=== PATIENT | female | born 1975 | race American Indian/Alaskan Native ===

== ENCOUNTER 2019-07-20 15:56 | Emergency (ER) | payer SELFPAY ==
[2019-07-20 16:01] VITALS: BP 150/96
--- NOTE | 2019-07-20 16:09 | Event Note ---
ED Screening Note ED Screening Note: lue pain with clear line of demarcation. she has at least 2 red spots on back ? etio given her LUE symptoms and chills I will do lab work lmp 06/28 This initial assessment/diagnostic orders/clinical plan/treatment(s) is/are subject to change based on patients health status, clinical progression and re-assessment by fellow clinical providers in the ED. Further treatment and workup at subsequent clinical providers discretion. Patient/guardian urged not to elope from the ED as their condition may be serious if not clinically assessed and managed. Initial orders include: cbc bmp
[2019-07-20 17:07] LABS: Basophils # (Auto) 0.1 K/mm3 (0.0-0.1); Basophils % (Auto) 0.9 % (0.0-1.8); Eosinophils # (Auto) 0.2 K/mm3 (0.0-0.4); Eosinophils % (Auto) 2.5 % (0.0-4.3); Hematocrit 25.9 % (30.3-42.9); Hemoglobin 7.9 gm/dl (10.1-14.3); Mean Corpuscular HGB Conc 31 % (30-34); Mean Corpuscular Volume 72 fl (79-97); Monocytes # (Auto) 0.5 K/mm3 (0.0-0.8); Monocytes % (Auto) 7.8 % (0.0-7.3); Red Blood Count 3.61 M/mm3 (3.65-5.03); Red Cell Distribution Width 19.8 % (13.2-15.2)
[2019-07-20 17:09] LABS: Platelet Count 81 K/mm3 (140-440)
[2019-07-20 17:27] LABS: Alanine Aminotransferase 10 units/L (7-56); Albumin 4.1 g/dL (3.9-5); BUN/Creatinine Ratio 13; Blood Urea Nitrogen 9 mg/dL (7-17); Calcium 9.1 mg/dL (8.4-10.2); Hemolysis Index 1
--- NOTE | 2019-07-20 19:10 | Emergency Department Report ---
ED General Adult HPI - General Chief complaint: Skin/Abscess/Foreign Body Stated complaint: BACK PAIN AND ARM Time Seen by Provider: 07/20/19 16:07 Source: patient Mode of arrival: Ambulatory Limitations: No Limitations - History of Present Illness Initial comments: 43-year-old -[place] female presents with complaints of left arm insect bite and insect bite to her mid back area x this morning. She states the areas are itchy and painful. She denies any fever/chills/sweats. She rates her pain as a 5/10 in severity and states it worsens with scratching. Patient denies trying any [id number] oral or topical medications. -: Sudden Severity scale (0 -10): 5 Quality: burning Consistency: constant Improves with: none Associated Symptoms: denies other symptoms - Related Data Previous Rx's Medication Instructions Recorded Last Taken Type Sulfamethoxazole/Trimethoprim 1 each PO BID 7 Days #14 tablet 07/20/19 Unknown Rx [Bactrim DS TAB] Triamcinolone Acetonide 2 cm TP TID PRN 7 Days #1 oint...g. 07/20/19 Unknown Rx Allergies Allergy/AdvReac Type Severity Reaction Status Date / Time No Known Allergies Allergy Unverified 07/20/19 15:58 ED Review of Systems ROS: Stated complaint: BACK PAIN AND ARM Other details as noted in HPI Comment: All other systems reviewed and negative Skin: as per HPI ED Past Medical Hx - Past Medical History Previous Medical History?: No - Surgical History Past Surgical History?: Yes Additional Surgical History: tubal ligation. tummy tuck - Social History Smoking Status: Never Smoker Substance Use Type: Alcohol - Medications Home Medications: Home Medications Medication Instructions Recorded Confirmed Last Taken Type Sulfamethoxazole/Trimethoprim 1 each PO BID 7 Days #14 tablet 07/20/19 Unknown Rx [Bactrim DS TAB] Triamcinolone Acetonide 2 cm TP TID PRN 7 Days #1 oint...g. 07/20/19 Unknown Rx ED Physical Exam - General Limitations: No Limitations General appearance: alert, in no apparent distress - Head Head exam: Present: atraumatic, normocephalic - Eye Eye exam: Present: normal appearance. Absent: scleral icterus - ENT ENT exam: Present: mucous membranes moist - Neck Neck exam: Present: normal inspection - Respiratory Respiratory exam: Present: normal lung sounds bilaterally. Absent: respiratory distress - Cardiovascular Cardiovascular Exam: Present: regular rate, normal rhythm. Absent: systolic murmur, diastolic murmur, rubs, gallop - Neurological Exam Neurological exam: Present: alert, oriented X3 - Psychiatric Psychiatric exam: Present: normal affect, normal mood - Skin Skin exam: Present: warm, dry, intact - Expanded Skin Exam Expanded 1 - 7 cm round area of mild erythema with 3 cm linear streak noted moving towards axilla. + ttp 2 - small oval 2 cm area of mild erythema consitent with insect bite ED Course Vital Signs 07/20/19 15:59 Temperature 97.7 F Pulse Rate 70 Respiratory 16 Rate Blood Pressure 150/96 O2 Sat by Pulse 100 Oximetry ED Medical Decision Making - Lab Data Result diagrams: 07/20/19 16:21 07/20/19 16:21 - Medical Decision Making 43-year-old -[place] female presents with complaints of left arm insect bite and insect bite to her mid back area x this morning. On exam, rash appears to be consistent with an insect bite, however, given small area of streaking will treat empirically for cellulitis. Wbc's are normal on CBC. Vitals are normal. Patient is stable for discharge home and follow-up with primary care provider. Prescription for Bactrim and triamcinolone given. Discussed strict return precautions in detail with patient who advises understanding. Critical care attestation.: If time is entered above; I have spent that time in minutes in the direct care of this critically ill patient, excluding procedure time. ED Disposition Clinical Impression: Insect bite Qualifiers: Encounter type: initial encounter Site of insect bite: upper arm Laterality: left Qualified Code(s): S40.862A - Insect bite (nonvenomous) of left upper arm, initial encounter; W57.XXXA - Bitten or stung by nonvenomous insect and other nonvenomous arthropods, initial encounter Cellulitis Qualifiers: Site of cellulitis: extremity Site of cellulitis of extremity: upper extremity Laterality: left Qualified Code(s): L03.114 - Cellulitis of left upper limb Anemia Qualifiers: Anemia type: iron deficiency Iron deficiency anemia type: other iron deficiency Qualified Code(s): D50.8 - Other iron deficiency anemias Disposition: - TO HOME OR SELFCARE Is pt being admited?: No Condition: Stable Instructions: Insect Bite or Sting (ED), Cellulitis (ED) Prescriptions: Sulfamethoxazole/Trimethoprim [Bactrim DS TAB] 1 each PO BID 7 Days #14 tablet Triamcinolone Acetonide 2 cm TP TID PRN 7 Days #1 oint...g. PRN Reason: itching Referrals: UMESH YOUNG MD [Staff Physician] - 3-5 Days
[2019-07-20] MEDS ORDERED: diphenhydrAMINE 25 MG CAP PO ONE (19:24)
== END 2019-07-20 19:29 | disposition home or self-care (01) ==
LOC: ED 15:56
DX: S40.862A Insect bite (nonvenomous) of left upper arm, initial encounter (principal); L03.114 Cellulitis of left upper limb; D64.9 Anemia, unspecified; Z98.51 Tubal ligation status; Z79.899 Other long term (current) drug therapy; W57.XXXA Bitten or stung by nonvenomous insect and other nonvenomous arthropods, initial encounter; Y93.89 Activity, other specified; Y92.410 Unspecified street and highway as the place of occurrence of the external cause; Y99.8 Other external cause status
CPT/HCPCS: 36415; 80053; 85025